=== PATIENT | female | born 1985 | race Two or more races ===

== ENCOUNTER 2023-10-07 08:55 | Emergency (ER) | payer OTHER ==
[~2023-10-07] VITALS: Ht 157.5 cm; Wt 70.8 kg
[2023-10-07 09:34] LABS: HEMATOCRIT 39.4 % (36.0-45.00); HEMOGLOBIN 13.3 g/dL (12.0-15.00); MEAN CELL VOLUME 91.1 fL (80.00-100.00); MEAN CORPUSCULAR HEMOGLOBIN 30.8 pg (27.00-32.0); MEAN CORPUSCULAR HGB CONC 33.8 g/dl (32.0-36.0); PLATELET COUNT 444 K/uL (150-450); RED BLOOD COUNT 4.33 M/uL (4.00-6.00); RED CELL DISTRIBUTION WIDTH 14.2 % (11.5-14.5)
[2023-10-07] MEDS ORDERED: 0.9 % SODIUM CHLORIDE 1,000 ML IV STA (09:44)
[2023-10-07] MEDS ORDERED: ALPRAzolam 0.25 MG TABLET PO STA (09:45)
[2023-10-07 10:40] LABS: ALBUMIN 3.8 gm/dL (3.4-5.0); BILIRUBIN TOTAL 0.83 mg/dL (0.3-1.2); CALCIUM 9.2 mg/dL (8.5-10.1); CREATININE SERUM 1.58 mg/dL (0.55-1.02); GFR 36.22; POTASSIUM 3.7 mEq/L (3.5-5.1); TOTAL PROTEIN 7.8 gm/dL (6.4-8.2)
== END 2023-10-07 12:00 | disposition home or self-care (01) ==
LOC: ER 08:56
PROVIDERS: General Practice
DX: I47.10 Supraventricular tachycardia, unspecified (principal); R07.89 Other chest pain